=== PATIENT | male | born 1940 | race Caucasian/White ===

== ENCOUNTER 2017-07-29 13:38 | Day surgery (SDC) | payer MEDICARE, MEDICAID ==
[~2017-07-29] VITALS: Ht 185.4 cm; Wt 74.8 kg
[2017-07-29] MEDS ORDERED: LEVOTHYROXIN125 MCG PO (14:55)
[2017-07-29] MEDS ORDERED: PRILOSEC20 MG PO (14:55)
[2017-07-29] MEDS ORDERED: ENSURE PLUS (14:56)
[2017-07-29] MEDS ORDERED: AMMONIUM LAC12 % EX (14:56)
[2017-07-29] MEDS ORDERED: METOPROL TAR25 MG PO (14:56)
[2017-07-29] MEDS ORDERED: KETOCONAZOLE2 % EX (14:57)
[2017-07-29 17:03] VITALS: BP 116/62
== END 2017-07-29 16:50 | disposition home or self-care (01) ==
LOC: ENDO 13:38 → ORM 17:45
PROVIDERS: ATTEND Internal Medicine Gastroenterology
PROC: 0D758ZZ Dilation of Esophagus, Via Natural or Artificial Opening Endoscopic (ICD-10-PCS; principal; 2017-07-29)
PROC: 0DB48ZX Excision of Esophagogastric Junction, Via Natural or Artificial Opening Endoscopic, Diagnostic (ICD-10-PCS; 2017-07-29)
DX: K22.2 Esophageal obstruction (principal); K29.50 Unspecified chronic gastritis without bleeding; K21.9 Gastro-esophageal reflux disease without esophagitis; R63.4 Abnormal weight loss; Q40.2 Other specified congenital malformations of stomach; I10 Essential (primary) hypertension; E03.9 Hypothyroidism, unspecified; F03.90 Unspecified dementia, unspecified severity, without behavioral disturbance, psychotic disturbance, mood disturbance, and anxiety; B96.81 Helicobacter pylori [H. pylori] as the cause of diseases classified elsewhere; Z86.19 Personal history of other infectious and parasitic diseases

== ENCOUNTER 2018-03-31 09:33 | Day surgery (SDC) | payer MEDICARE, OTHER ==
[~2018-03-31] VITALS: Ht 182.9 cm; Wt 74.8 kg
[~2018-03-31 09:33] MED LIST: AMMONIUM LAC12 % EX; CLONAZEPAM0.5 M1 PO; ENSURE PLUS; KETOCONAZOLE2 % EX; LEVOTHYROXIN125 MCG PO; METOPROL TAR25 MG PO; PRILOSEC20 MG PO
[2018-03-31 13:23] VITALS: BP 102/67
== END 2018-03-31 13:20 | disposition other institution (70) ==
LOC: ENDO 09:33
PROVIDERS: ATTEND Internal Medicine Gastroenterology
PROC: 0D758ZZ Dilation of Esophagus, Via Natural or Artificial Opening Endoscopic (ICD-10-PCS; principal; 2018-03-31)
PROC: 0DB48ZX Excision of Esophagogastric Junction, Via Natural or Artificial Opening Endoscopic, Diagnostic (ICD-10-PCS; 2018-03-31)
PROC: 0DB78ZX Excision of Stomach, Pylorus, Via Natural or Artificial Opening Endoscopic, Diagnostic (ICD-10-PCS; 2018-03-31)
DX: K22.2 Esophageal obstruction (principal); K31.9 Disease of stomach and duodenum, unspecified; K21.9 Gastro-esophageal reflux disease without esophagitis; K29.70 Gastritis, unspecified, without bleeding; Q40.2 Other specified congenital malformations of stomach; R63.4 Abnormal weight loss; K64.8 Other hemorrhoids; I10 Essential (primary) hypertension; E03.9 Hypothyroidism, unspecified; F03.90 Unspecified dementia, unspecified severity, without behavioral disturbance, psychotic disturbance, mood disturbance, and anxiety